=== PATIENT | female | born 2005 | race Caucasian/White ===

== ENCOUNTER 2024-12-08 00:14 | Emergency (ER) | payer BC, SELFPAY ==
--- NOTE | ~2024-12-08 | XR_ITS ---
CLINICAL HISTORY: pain 1 view abdomen Comparison: None provided Findings: Bowel-gas pattern is within normal limits. There is a moderate amount of stool in the colon. There is no evidence of bowel obstruction. No calcifications are seen within the regions of the kidneys or ureters. Impression: Bowel-gas pattern is within normal limits. This document has been electronically signed by: Luis A Oneil MD on 12/08/2024 01:29:53
[2024-12-08 00:18] VITALS: BP 146/71; PULSE 70; RESP 20; TEMP 36.6; O2SAT 98; BMI 27.5
[2024-12-08 00:27] LABS: MANUAL DIFF FLAG NO
[2024-12-08 00:28] LABS: Hematocrit 37.1 % (37.0-47.0); Hemoglobin 12.7 g/dl (12.0-16.0); Imm Gran Abs Auto 0.02 X10*3/uL (0.00-0.03); Imm Gran Pct Auto 0.2 % (0.0-0.4); Lymphocytes Absolute Auto 3.6 X10*3/uL (1.2-4.9); Mean Corpuscular HGB Conc 34.2 g/dl (31.0-35.0); Mean Corpuscular Hemoglobin 30.0 pg (27.0-33.0); Mean Corpuscular Volume 87.7 fL (80.0-98.0); NRBC Abs Auto 0.000 X10*3/uL (0.0-0.012); NRBC Pct Auto 0.0 /100WBC (0.0-0.2); Platelet Count 329 X10*3/uL (160-400); Red Blood Count 4.23 X10*6/uL (4.20-5.50); White Blood Count 9.2 X10*3/uL (4.8-10.8)
[2024-12-08 00:48] LABS: Alanine Aminotransferase 19 U/L (0-31); Albumin Level 4.8 g/dL (3.5-5.0); Alkaline Phosphatase 88 U/L (39-117); Anion Gap 14 (12-20); Aspartate Amino Transferase 24 U/L (5-31); Blood Urea Nitrogen 15 mg/dL (9-16); Calcium 9.0 mg/dL (8.4-10.2); Carbon Dioxide 22 mmol/L (22-29); Chloride 108 mmol/L (96-108); Creatinine Clr Calc Pharmacy 140.1; Estimated Glomerular Filt Rate > 60; Potassium 3.7 mmol/L (3.3-5.1); Sodium 140 mmol/L (135-145); Total Protein 7.4 g/dL (6.5-8.0)
--- OUTSIDE RECORDS SUMMARY | 2024-12-08 00:49 | XMS_ITS | Clinical Summary ---
Author Organization [facility] Address [address] [facility] [address] [place] [address] Care Team Providers Care Retort Operator Name Role Phone Sofia Goldman MD Primary Care Provider [phone] Allergies No known active allergies Medications clonazePAM (KlonoPIN) 0.5 mg tablet Take 0.5 mg by mouth. 08/07/2022 Active hydrOXYzine HCL (Atarax) 10 mg tablet Take 10-20 mg by mouth if needed in the morning and at bedtime. 08/07/2022 Active sertraline (Zoloft) 50 mg tablet Take 100 mg by mouth once daily. 07/03/2022 Active Active Problems Patient Care Coordination No te Formatting of this note migh t be different from the original. PCP: SOFIA GOLDMAN [address], [place] [address], [facility] No additional problems on file Family History Medical History Relation Name Comments Crohn's disease Father's Sister paternal half aunt Multiple sclerosis Father's Sister patern al half aunt Rheum arthritis Father's Sister paternal half aunt Psoriasis Maternal Grandfather Depression Maternal Grandmother possibl e mood disorder, recently hospitalized in 2022 Hypothyroidism Maternal Grandmother Stroke Maternal Grandmother Lyme disease Mother OCD Mother since middle sc hool age, on fluoxetine gluten sensitivity Mother Miscarriages / Stillbirths Mother's Sister miscarriage once Heart attack Other MGGM once, MGGP three times prior to age 70 EBV infection Sister in 2022 Relation Name Status Comments Father's Sister Maternal Grandfather Maternal Grandmother Mother Mother's Sister Other Sister Social History Tobacco Use Types Packs/Day Years Used Date Smoking Tobacco: Never Assessed Comments Unknown Sex and Gender Information Value Date Recorded Sex Assigned at Not on file Legal Sex Female 7:17 AM EST Gender Identity Not on file Sexual Orientation Not on file Last Filed Vital Signs Vital Sign Reading Time Taken Comments Blood Pressure 123/77 09/19/2022 1:07 PM EDT Pulse 88 09/19/2022 1:07 PM EDT Temperature 36.6 C (97.8 F) 09/19/2022 1:07 PM EDT Respiratory Rate - - Oxygen Saturation 97% 09/19/2022 1:07 PM EDT Inhaled Oxygen Concentration - - Weight 64.1 kg (141 lb 5 oz) 09/19/2022 1:07 PM EDT Height 161.6 cm (5' 3.62 ) 09/19/2022 1:07 PM ED T Body Mass Index 24.55 09/19/2022 1:07 PM EDT Plan of Treatment Health Maintenance Due Date Last Done Comments Chlamydia Screening 2003 HIV Screening 2003 MMR Vaccines (1 of 1 - Stand zach series) 2004 Varicella Vaccines (1 of 2 - 13+ 2-dose series) 2016 HPV Vaccines (1 - 3-dose series) 2018 Meningococcal B Vaccine (1 o f 2 - Standard) 2019 Hepatitis C Screening 2021 DTaP/Tdap/Td Vaccines (1 - Tdap) 2022 Hepatitis B Vaccines (1 of 3 - 19+ 3-dose series) 2022 Depression Screening 02/17/2024 Pap Smear 2024 COVID-19 Vaccine (1 - 2024-2 6 season) 2024 Influenza Vaccine (#1) 2024 HIB Vaccines Aged Out No longer eligi ble based on patient's age to complete this topic Hepatitis A Vaccines Aged Out No long er eligible based on patient's age to complete this topic IPV Vaccines Aged Out No longer eligi ble based on patient's age to complete this topic Meningococcal Vaccine Aged Out No galileo apolonia eligible based on patient's age to complete this topic Pneumococcal Vaccine: Pediat rics (0 to 5 Years) and At-Risk Patients (6 to 49 Years) Aged Out No longer eligible b ased on patient's age to complete this topic Rotavirus Vaccines Aged Out No longer eligible based on patient's age to complete this topic Insurance [place], [facility] Care Teams Retort Operator Relationship Specialty Start Date End Date Sofia Goldman MD [address] [place] [address] PCP - General Black Powder Glazing Operator 09/17/22
--- OUTSIDE RECORDS SUMMARY | 2024-12-08 00:49 | XMS_ITS | Clinical Summary ---
Author Organization [facility] '[facility] Address [address] [place] [address] Care Team Providers Care Milieu Coordinator Name Role Phone Unavailable Primary Care Provider Unavailabl e Source Comments Please note that some or all of the patient's information could have additional privacy protections. State laws allow health care providers to render certain types of treatment to minors without parental consent. Please do not assume that this information can be shared solely by obtaining just the consent of the patient's parent/guardian. Please determine if all or part of the patient's care was rendered without parent/guardian involvement. And, if so, obtain the minor's consent prior to disclosure.[facility] Social History Tobacco Use Types Packs/Day Years Used Date Smoking Tobacco: Never Assessed Comments Unknown Sex and Gender Information Value Date Recorded Sex Assigned at Not on file Legal Sex Female 2:27 AM EST Gender Identity Not on file Sexual Orientation Not on file Plan of Treatment Not on file
--- OUTSIDE RECORDS SUMMARY | 2024-12-08 00:49 | XMS_ITS | Clinical Summary ---
Author Organization [facility] Address [address] [place] [address] Care Team Providers Care Heel Splitter Name Role Phone Juan CKailee saavedra MILENA Primary Care Provider [phone] Medications naproxen (NAPROSYN) 500 MG tablet take 1 tablet by oral route 2 times every day with food as needed for breast pain 08/11/2024 Active buPROPion (WELLBUTRIN XL) 150 MG 24 hr tablet take 1 tablet by oral route every day 08/11/2024 Active sertraline (ZOLOFT) 50 MG tablet take 1.5 tablets by oral route once a day for total daily dose of 75mg. 07/06/2023 Active Encounters Date Type Department Care Team Description 10/18/2024 Abstract [facility] NextGen Conversion [facility] Building [address] [id number] Conversion Provider, MD Kenisha from Last 3 Months Family History Medical History Relation Comments Hypercholesterolemia Father Cause of De ath?: N HTN Maternal Grandfather Cause of De ath?: N Afib Maternal Grandmother Cause of De ath?: N CHF Maternal Grandmother Cause of De ath?: N Stroke Maternal Grandmother Cause of De ath?: N OCD Mother Cause of ?: N skin CA Mother Cause of ?: N MS, Crohn's, RA Paternal Aunt Cause of ?: N Absence seizures Paternal Grandfather Cause of D eath?: N Bile duct cancer - at 70 Paternal Grandmoth er Cause of ?: N Relation Status Comments Father Maternal Grandfather Maternal Grandmother Mother Paternal Aunt Paternal Grandfather Paternal Grandmother Social History Tobacco Use Types Packs/Day Years Used Date Smoking Tobacco: Never Alcohol Use Standard Drinks/Week Comments No 0 (1 standard drink = 0.6 oz pur e alcohol) Comments Unknown Sex and Gender Information Value Date Recorded Sex Assigned at Female 09/02/2024 7:12 PM EDT Legal Sex Female 7:12 PM EDT Gender Identity Not on file Sexual Orientation Not on file Last Filed Vital Signs Vital Sign Reading Time Taken Comments Blood Pressure 100/70 08/11/2024 9:39 AM EDT Cuff size: Adult Target site: arm Pulse - - Temperature - - Respiratory Rate - - Oxygen Saturation - - Inhaled Oxygen Concentration - - Weight 71.6 kg (157 lb 12.8 oz) 08/11/2024 9:39 AM EDT WeightContext: dressed without shoes Height 162.6 cm (5' 4 ) 08/11/2024 9:39 AM EDT HeightMethod: carried forward Body Mass Index 27.09 08/11/2024 9:39 AM EDT Plan of Treatment Upcoming Encounters Date Type Department Care Team (Late st Contact Info) Description 07/11/2025 10:00 AM EDT Office Visit [facility], [address] [place] [address] Kailee [place] NP [address] [place] [address] In Person with Nurse Practitioner Health Maintenance Due Date Last Done Comments Depression Screening 2007 Chlamydia and Gonorrhea Screening 2018 Meningococcal B Vaccines (1 of 2 - Standard) 2019 Hepatitis C Screening 2021 Cervical Cancer Screening 2024 Pap Smear 2024 COVID-19 Vaccine (1 - 2023-2 5 season) 2024 Influenza Vaccine (#1) 2024 Blood Pressure 08/11/2028 08/11/2024 DTaP,Tdap,and Td Vaccines (2 - Td or Tdap) 02/21/2034 02/22/2024 Meningococcal Vaccines Aged Out No lo nger eligible based on patient's age to complete this topic Pneumococcal Vaccine Aged Out No long er eligible based on patient's age to complete this topic Care Teams Heel Splitter Relationship Specialty Start Date End Date Kailee Martinez NP [address] [place] [id number] PCP - General 08/11/24
[2024-12-08 00:51] LABS: Magnesium 2.0 mg/dL (1.6-2.6)
[2024-12-08] MEDS: Sucralfate Oral Suspension 1 GM/10 ML ORAL.SUSP PO (00:52)
[2024-12-08 01:16] LABS: COVID-19 Test Negative (Negative); IDNOW Serial# 55D5AD1C; IDNOW Serial# 58CA691E; Influenza B2 Negative (Negative)
--- NOTE | 2024-12-08 01:53 | ED_ITS ---
HPI - General Adult General Chief complaint: Nausea/Vomiting/Diarrhea Stated complaint: Vomiting Blood Time Seen by Provider: 12/08/24 00:26 Source: patient Limitations: no limitations History of Present Illness ED Provider: Nereida Le PA-C HPI narrative: 19-year-old female who is otherwise healthy presents with nausea vomiting. Patient states she developed intermittent nausea vomiting today. Denies constipation, diarrhea, abdominal distention, fever. Denies abdominal pain. Denies sick contacts with similar symptoms. Related Data Previous Rx's ?Medication ?Instructions ?Recorded ondansetron 4 mg disintegrating 4 mg PO Q8H PRN nausea and 12/08/24 tablet vomiting #10 tabs Allergies Allergy/AdvReac Type Severity Reaction Status Date / Time No Known Allergies Allergy Verified 12/08/24 00:19 Review of Systems 2 Review of Systems: Yes all other systems are reviewed and are negative Constitutional: Constitutional: Denies fatigue and Denies fever(s) Cardiovascular: Cardiovascular: Denies chest pain and Denies dyspnea Respiratory: Respiratory: Denies dyspnea Gastrointestinal: Gastrointestinal: Denies abdominal pain, Denies constipation, Denies diarrhea, Reports nausea and Reports vomiting Endocrine: Endocrine: Denies fatigue [facility] Past Medical History Attestation statement: The following information was validated with the patient. Social History Social History Smoked in Last 30 Days: No Use of substances other than those prescribed or required for medical reasons: No Advance Directives: No Advance Directives Information Provided: Yes Patient : No Physical Exam ED Vital Signs: Vital Signs - 24 hr 12/08/24 00:18 12/08/24 02:23 Temperature 98 F 97.4 F Pulse Rate 70 76 Respiratory Rate 20 16 Blood Pressure 146/71 H 114/73 Pulse Oximetry 98 98 Oxygen Delivery Method Room Air Room Air BMI result Body Mass Index 27.5 Const Other: Alert well-appearing Orientation/consciousness: patient oriented x3 Resp Effort & Inspection: normal respiratory effort Cardio Other: Normal peripheral perfusion GI Other: No distention Skin Other: Warm dry no rash Neuro General: patient oriented x3, gait normal, no focal motor deficits and CN's II- XI intact bilaterally Psych Other: Cooperative Medications Administered Discontinued Medications Generic Name Dose Route Start Last Admin Trade Name Freq PRN Reason Stop Dose Admin Sodium Chloride 1,000 mls @ 999 mls/hr 12/08/24 00:45 12/08/24 00:55 Ns IV 12/08/24 01:45 999 mls/hr .Q1H1M EDD Administration Ondansetron HCl 4 mg 12/08/24 00:33 12/08/24 00:52 Ondansetron Hcl 4 Mg/2 Ml Vial IVPUSH 12/08/24 00:34 4 mg ONCE ONE Administration Sucralfate 1 gm 12/08/24 00:33 12/08/24 00:52 Sucralfate Oral Suspension 1 Gm/10 Ml Oral.Susp PO 12/08/24 00:34 1 gm ONCE ONE Administration Medical Decision Making Medical Decision Making [facility] Narrative: 19-year-old female who is otherwise healthy presents with nausea vomiting. Patient states she developed intermittent nausea vomiting today. Denies constipation, diarrhea, abdominal distention, fever. Denies abdominal pain. Denies sick contacts with similar symptoms. No chronic issues History: Per patient I have considered the following differential diagnoses: Acute intra-abdominal pathology, viral gastritis, constipation, bowel obstruction Plan: Patient here with nausea vomiting without pain, without any other symptoms is afebrile. We will screen basic labs and a KUB. I have independently reviewed the following tests: Labs: No leukocytosis, not anemic, no electrolyte abnormality, not , viral panel negative KUB: Comparison: None provided Findings: Bowel-gas pattern is within normal limits. There is a moderate amount of stool in the colon. There is no evidence of bowel obstruction. No calcifications are seen within the regions of the kidneys or ureters. Impression: Bowel-gas pattern is within normal limits. Differential Diagnosis Differential Diagnoses: The differential diagnosis associated with the presentation includes See medical decision-making Admission/Observation Consideration of admission/observation: Escalation of care including admission/observation considered Not applicable Lab Data [facility] Lab Attestation statement: I reviewed the patient's lab results. 12/08/24 00:24 12/08/24 00:24 Labs: Lab Results 12/08/24 12/08/24 Range/Units 00:24 00:55 WBC 9.2 (4.8-10.8) X10*3/uL RBC 4.23 (4.20-5.50) X10*6/uL Hgb 12.7 (12.0-16.0) g/dl Hct 37.1 (37.0-47.0) % MCV 87.7 (80.0-98.0) fL MCH 30.0 (27.0-33.0) pg MCHC 34.2 (31.0-35.0) g/dl RDW 12.1 (11.0-16.0) % Plt Count 329 (160-400) X10*3/uL MPV 10.1 (9.4-12.3) fL Immature Gran % (Auto) 0.2 (0.0-0.4) % Neut % (Auto) 50.4 (45-73) % Lymph % (Auto) 39.4 (20-40) % Brooks % (Auto) 8.7 (2-11) % Eos % (Auto) 1.2 (0-4) % Baso % (Auto) 0.1 (0-2) % Lymph # (Auto) 3.6 (1.2-4.9) X10*3/uL Brooks # (Auto) 0.8 (0.1-1.2) X10*3/uL Eos # (Auto) 0.1 (0.0-0.4) X10*3/uL Baso # (Auto) 0.0 (0.0-0.2) X10*3/uL Abs Immat Gran (auto) 0.02 (0.00-0.03) X10*3/uL Absolute Neuts (auto) 4.7 (2.0-8.3) x10*3/uL Absolute Nucleated RBC 0.000 (0.0-0.012) X10*3/uL Nucleated RBC % (auto) 0.0 (0.0-0.2) /100WBC Sodium 140 (135-145) mmol/L Potassium 3.7 (3.3-5.1) mmol/L Chloride 108 (96-108) mmol/L Carbon Dioxide 22 (22-29) mmol/L Anion Gap 14 (12-20) BUN 15 (9-16) mg/dL Creatinine 0.62 (0.5-1.4) mg/dL Estim Creat Clear Calc 140.1 Estimated GFR > 60 Random Glucose 98 (60-115) mg/dL Calcium 9.0 (8.4-10.2) mg/dL Magnesium 2.0 (1.6-2.6) mg/dL Total Bilirubin 0.4 (0.0-1.0) mg/dL AST 24 (5-31) U/L ALT 19 (0-31) U/L Alkaline Phosphatase 88 (39-117) U/L Total Protein 7.4 (6.5-8.0) g/dL Albumin 4.8 (3.5-5.0) g/dL Beta HCG, Quant < 2 mIU/mL COVID-19 (JEANNETTE) Negative (Negative) COVID-19 Clin Com See Note Influenza Type A (KARTHIK) Negative (Negative) Influenza Type B (KARTHIK) Negative (Negative) Influenza A & B Note See Note Radiology Impression Discussion of test interpretation with radiology: I have reviewed the radiologist's reading. Discharge Plan Discharge Clinical Impression: Constipation Patient Disposition: Home, Self-Care Instructions: Constipation (ED) Additional Instructions: All of your screening labs were completely normal. The x-ray revealed that you were considerably constipated. See home care instructions. You should use [id number] Colace this is a stool softener, twice a day. In addition use [id number] MiraLax, 4 to 5 times a day until you begin having multiple large volume bowel movements. Once you clear your current stool burden, you could stay on the Colace daily and perhaps the MiraLax a few times a week to help maintain regularity. Uses Zofran as needed for nausea. Follow up with your primary care as needed. Prescriptions: New ondansetron 4 mg tablet,disintegrating 4 mg PO Q8H PRN (Reason: nausea and vomiting) Qty: 10 0RF Print Language: Chinese
[2024-12-08 02:23] VITALS: BP 114/73; PULSE 76; RESP 16; TEMP 36.3; O2SAT 98
[2024-12-08 03:40] VITALS: BP 121/73; PULSE 76; RESP 16; TEMP 36.6; O2SAT 99
== END 2024-12-08 03:41 | disposition home or self-care (01) ==
PROVIDERS: Physician Assistant Medical; Emergency Provider Emergency Medicine
DX: K92.0 Hematemesis (principal); K59.00 Constipation, unspecified; R10.822 Left upper quadrant rebound abdominal tenderness
CPT/HCPCS: 36415; 74018; 80053; 83735; 84702; 85025; 87502; 87635; 96361; 96374; 99284; J2405

== ENCOUNTER → 2024-12-08 00:46 | Outpatient (BNV) | payer BC, SELFPAY | PROVIDERS: Emergency Provider Emergency Medicine; Visit Provider Radiology Diagnostic Radiology | DX: R10.9 Unspecified abdominal pain (principal) | CPT/HCPCS: 74018 ==